=== PATIENT | male | born 1980 | race Caucasian/White ===

== ENCOUNTER 2017-06-22 01:54 | Emergency (ER) | payer BC ==
[~2017-06-22 01:54] MED LIST: Lidocaine 2% with EPINEPHrine 1:100,000 20 ML MDV INFILT ONE
[2017-06-22] MEDS ORDERED: Diphtheria,Pertussis(Acell),Tetanus Vaccine 0.5 ML SDV IM ONE (02:23)
--- NOTE | 2017-06-22 02:49 | ER ---
DATE SEEN: 06/22/2017 CHIEF COMPLAINT: Laceration. HISTORY OF PRESENT ILLNESS: This is a 37-year-old male, who fell at home landing on the face and injured lower lip and had a laceration. He does not remember his last tetanus. PHYSICAL EXAMINATION: GENERAL: He is not in distress. VITAL SIGNS: Blood pressure is normal. HEENT: Lips revealed 2 cm sized laceration of the lower lip of the mouth but does not cross the vipul border. It is jagged, irregular, and deep. IMPRESSION: Laceration, lip. PLAN: I used anesthesia locally 2% lidocaine with epinephrine. I then used 5-0 Vicryl to oppose the edges of the laceration together and closed them. Tetanus was addressed. He was given an injection today, and he was discharged home with instructions to keep it clean and return p.r.n. Time seen is 2:30 a.m. /[id number] ROCIO/GISSELLE
[2017-06-22 02:58] VITALS: BP 120/86
== END 2017-06-22 02:35 | disposition home or self-care (01) ==
LOC: FB.ED 01:54
DX: S01.511A Laceration without foreign body of lip, initial encounter (principal); Z23 Encounter for immunization; W19.XXXA Unspecified fall, initial encounter; Y92.009 Unspecified place in unspecified non-institutional (private) residence as the place of occurrence of the external cause
CPT/HCPCS: 12011; 90715; 99282

== ENCOUNTER 2023-11-06 00:02 | Emergency (ER) | payer BC ==
[2023-11-06 00:30] VITALS: BP 130/86; PULSE 87
== END 2023-11-06 00:50 | disposition home or self-care (01) ==
LOC: FB.ED 00:02
DX: S01.21XA Laceration without foreign body of nose, initial encounter (principal); W20.8XXA Other cause of strike by thrown, projected or falling object, initial encounter
CPT/HCPCS: 12002; 12014; 99282